=== PATIENT | male | born 1960 | race Caucasian/White ===

== ENCOUNTER 2016-11-20 11:24 | Emergency (ER) | payer OTHER ==
[~2016-11-20 11:24] MED LIST: ADVIL200 M1 PO; ALBUTEROL17 GM INH; ASPIRIN325 M1 PO; ASPIRIN81 M1; BACTRIM DS TABL1 TA1 PO; BENZONATATE PO; CARDIZEM30 MG PO; CELEXA20 MG PO; COMBIVENT MININEB INH; FLAGYL250 M1 PO; FLEXERIL PO; FLEXERIL10 MG PO; GABAPENTIN300 M2 PO; IBUPROFEN PO; KEFLEX500 MG PO; LEVAQUIN750 M1 PO; LEVAQUIN750 MG PO; LIPITOR40 MG PO; LOPRESSOR PO; LORTAB 5/500 TA1 TA1 PO; METHADONE HCL10 MG PO; METHADONE PO; METHADOSE PO; METHADOSE10 MG PO; MOUTH WASH PO; MUCINEX100 MG/BOX PO; NO MEDICATIONS; OMEGA 3 FISH OI1 CAP PO; ORUDIS75 M1 PO; PREDNISONE PO; PREDNISONE10 MG PO; PRILOSEC40 MG PO; PROAIR HFA8.5 GM IH; TOPROL XL PO; VALIUM10 MG PO; [UNRECOGNIZED DRUG - OTHER]
== END 2016-11-20 11:38 | disposition left against medical advice (07) ==
LOC: CED 11:24
DX: Z53.21 Procedure and treatment not carried out due to patient leaving prior to being seen by health care provider (principal)

== ENCOUNTER 2017-02-15 16:35 | Emergency (ER) | payer OTHER ==
--- NOTE | ~2017-02-15 | EKG ---
PATIENT: KATIA BAPTISTE UNIT #: [id number] Ventricular Rate: 56 BPM Atrial Rate: 56 BPM P-R Interval: 184 ms QRS Duration: 90 ms Q-T Interval: 450 ms QTC Calculation(Bezet): 434 ms P [place]: 71 degrees Calculated R [place]: -34 degrees Calculated T [place]: 19 degrees Diagnosis Line: Sinus bradycardia with Premature atrial complexes Diagnosis Line: Left axis deviation Diagnosis Line: Inferior infarct , age undetermined Diagnosis Line: Abnormal ECG Diagnosis Line: Diagnosis Line: Confirmed by ESPERANZA HUFF MD ([id number]) on Diagnosis Line: 02/16/2017 5:14:59 PM INTERPRETING MD: JUAN PABLO
--- NOTE | ~2017-02-15 | CR72 ---
[facility] A Service of [facility] RADIOLOGY TEXT RESULTS PATIENT: KATIA BAPTISTE JR LOCATION: [facility] : 62 UNIT #: [id number] AGE: [address]: Moses Cleeste MD SEX: M ORDER DR: [id number] [facility] [address] [place], [place] [address] [id number] E MR#: [id number] Acc #: [id number] NAME: KATIA BAPTISTE JR : 1960 SEX: M STUDY DATE/TIME: 02/15/2017 18:00 UNIT: [facility] ROOM: STUDY DESCRIPTION: CR Chest Single View Portable Attending Physician: Moses Celeste M.D. Ordering Physician: Moses Celeste M.D. Primary Care Physician: [facility] MEDICAL IMAGING REPORT This report is preliminary unless electronic signature is present EXAM AP radiograph chest HISTORY Chest pain. Began 2 weeks ago. Prior history of lung cancer. Smoker 44 years. Removal of partial lung. FINDINGS AP radiograph of the chest compared to chest CT 09/26/2016 and chest radiograph 09/11/2016. The patient is status post prior left lower lobe resection. Remaining portions of lungs well inflated without evidence of acute infectious or inflammatory disease. There is no pleural effusion or pneumothorax. No suspicious nodule is seen. The heart is mildly enlarged. Stable. The bony structures show no acute abnormality. Dictated by... Ashok Lerma M.D. THIS IS AN ELECTRONICALLY VERIFIED REPORT Ashok Lerma M.D. at 02/16/2017 6:54 PM JEANINE/lonnie TD: 02/16/2017 10:55 JOB #: [id number] MEDICAL IMAGING REPORT Page 1 of 1 COPY
[2017-02-15 18:09] LABS: POC - CKMB 1.3 ng/mL (0.0-7.9); POC - TROPONIN <0.05 ng/mL (<=0.05)
[2017-02-15 18:09] LABS: BASOPHIL# 0.1 X10e3 (0-0.3); BASOPHIL% 1.2 % (0-2.5); EOSINOPHIL# 0.2 X10e3 (0-0.7); EOSINOPHIL% 2.7 % (0.0-7.0); HEMATOCRIT 48.1 % (38.0-50.0); HEMOGLOBIN 16.1 gm/dL (13.0-16.0); LYMPHOCYTE% 25.6 % (17.0-45.0); MEAN CELL VOLUME 85.8 FL (83-96); MEAN CORPUSCULAR HEMOGLOBIN 28.7 PG (28-34); MEAN CORPUSCULAR HGB CONC 33.5 g/dL (30-36); MEAN PLATELET VOLUME 9.1 FL (6.5-11.5); MONOCYTE# 0.7 X10e3 (0-1.0); MONOCYTE% 9.4 % (3.0-12.0); NEUTROPHIL# 4.8 X10e3 (1.5-7.1); NEUTROPHIL% 61.1 % (40-75); PLATELET COUNT 271 X10e3 (140-420); RED BLOOD COUNT 5.61 X10e (3.90-5.60); RED CELL DISTRIBUTION WIDTH 14.4 % (11.0-15.5); WHITE BLOOD COUNT 7.9 X10e3 (4.0-10.5)
[2017-02-15 18:11] LABS: DIFF IND NO
[2017-02-15 18:21] LABS: PARTIAL THROMBOPLASTIN TIME 27.4 SECONDS (23.5-31.3); PROTHROMBIN TIME (PATIENT) 10.9 SECONDS (10.0-11.7)
[2017-02-15 18:29] LABS: ALBUMIN SERUM 3.7 g/dL (3.5-5.0); BILIRUBIN, DIRECT 0.1 mg/dL (0.0-0.2); BILIRUBIN,INDIRECT 0.5 mg/dL (0.0-0.9); BILIRUBIN,TOTAL 0.6 mg/dL (0.2-2.0); BUN/CREATININE RATIO 14.28; CALCIUM SERUM 9.4 mg/dL (8.4-10.2); CREATININE SERUM 0.7 mg/dL (0.6-1.4); GLOM FILT RATE Estimated 105.5 mL/min (>60); POTASSIUM 4.1 mmol/L (3.5-5.1); PROTEIN TOTAL SERUM 6.8 g/dL (6.0-8.3)
== END 2017-02-15 19:10 | disposition home or self-care (01) ==
LOC: CED 16:35
PROVIDERS: Emergency Medicine
DX: M54.2 Cervicalgia (principal); R07.9 Chest pain, unspecified; F17.200 Nicotine dependence, unspecified, uncomplicated; Z88.0 Allergy status to penicillin; Z88.1 Allergy status to other antibiotic agents
CPT/HCPCS: 36415; 71010; 80048; 80076; 82553; 84484; 85025; 85610; 85730; 93005; 99284

== ENCOUNTER → 2017-02-16 | Outpatient (CLI) | payer OTHER ==
--- NOTE | ~2017-02-16 | CT57 ---
[facility] A Service [facility] RADIOLOGY TEXT RESULTS PATIENT: KATIA BAPTISTE JR LOCATION: [facility] : 62 UNIT #: [id number] AGE: [address]: Rodney Duarte MD SEX: M ORDER DR: [id number] [id number] [facility] [place], [place] [address] [id number] O MR#: [id number] [facility] #: [id number] NAME: KATIA BAPTISTE : 1960 SEX: M STUDY DATE/TIME: 02/16/2017 15:05 UNIT: [facility] ROOM: STUDY DESCRIPTION: CT Chest Wo Cont Attending Physician: Rodney Duarte M.D. Referring Physician: Rodney Duarte M.D. Ordering Physician: Rodney Duarte M.D. Primary Care Physician: [facility] MEDICAL IMAGING REPORT This report is preliminary unless electronic signature is present EXAM CT chest without contrast INDICATION Followup pulmonary nodule. Patient has a history of lung cancer. TECHNIQUE CT scan of the chest was performed without contrast. Coronal and sagittal reformatted images were obtained. This CT exam was performed with one or more of the following radiation dose reduction techniques: automatic exposure control, adjustment of mA and/or kV according to patient size, and iterative reconstruction. COMPARISON 09/26/2016 FINDINGS Emphysema. Prior left lower lobectomy. Previously noted 4.0 mm left upper lobe pulmonary nodule is no longer present. No suspicious pulmonary nodule. No new nodule. Stable mildly prominent mediastinal lymph nodes. No pleural effusion. Limited imaging of the upper abdomen demonstrates fatty infiltration of the liver. Bone windows are unremarkable. IMPRESSION The previously noted 4.0 mm left upper lobe nodule has resolved. No new or suspicious nodules. Dictated by... Santo Lee M.D. [facility] RADIOLOGY TEXT RESULTS PATIENT: KATIA BAPTISTE JR LOCATION: [facility] : 62 UNIT #: [id number] AGE: [address]: Rodney Duarte MD SEX: M ORDER DR: THIS IS AN ELECTRONICALLY VERIFIED REPORT Santo Lee M.D. at 02/18/2017 7:41 AM Laly TD: 02/17/2017 14:58 JOB #: [id number] MEDICAL IMAGING REPORT Page 1 of 1 COPY
== END | disposition home or self-care (01) ==
LOC: CCAT 02-12 13:00
DX: R91.8 Other nonspecific abnormal finding of lung field (principal)
CPT/HCPCS: 71250